=== PATIENT | female | born 1970 | race Caucasian/White ===

== ENCOUNTER 2020-11-05 18:57 | Emergency (ER) | payer OTHER ==
[~2020-11-05 18:57] MED LIST: PRENATAL VITAM1 EAC8 PO; ZANTAC150 MG PO; ZOLOFT25 MG PO
== END 2020-11-05 23:00 | disposition home or self-care (01) ==
LOC: ER1 18:57
DX: J02.9 Acute pharyngitis, unspecified (principal); K21.9 Gastro-esophageal reflux disease without esophagitis; E78.5 Hyperlipidemia, unspecified; Z88.2 Allergy status to sulfonamides; Z20.822 Contact with and (suspected) exposure to COVID-19; Z88.0 Allergy status to penicillin
CPT/HCPCS: 87081; 87880; 99283; U0002